=== PATIENT | female | born 1970 | race Caucasian/White ===

== ENCOUNTER 2017-12-26 11:41 | Emergency (ER) | payer MEDICARE, OTHER ==
[~2017-12-26] VITALS: Ht 167.6 cm; Wt 63.0 kg
[2017-12-26 11:44] VITALS: BP 158/88
[2017-12-26] MEDS ORDERED: LIDOcaine 1.5% w/epinephrine 1:200,000 5ml ampul IJ ONE (12:35)
[2017-12-26] MEDS ORDERED: SULF1TAB49 PO (13:24)
== END 2017-12-26 13:38 | disposition home or self-care (01) ==
LOC: ER 11:42
DX: L03.112 Cellulitis of left axilla (principal); F17.200 Nicotine dependence, unspecified, uncomplicated; Z79.899 Other long term (current) drug therapy
CPT/HCPCS: 10160; 87070; 87077; 87186; 99284; J3490

== ENCOUNTER 2020-06-22 16:14 | Emergency (ER) | payer MEDICARE ==
[~2020-06-22] VITALS: Ht 167.6 cm; Wt 62.9 kg
[2020-06-22] MEDS ORDERED: ketorolac trometh. 30mg/ml inj. IV ONE (16:55)
[2020-06-22] MEDS ORDERED: SUMAtriptan succ. 6 MG/0.5ml vial SQ ONE (16:55)
[2020-06-22] MEDS ORDERED: acetaminophen 325mg tablet PO ONE (16:55)
[2020-06-22] MEDS ORDERED: proCHLORperazine 10 MG/2 ml inj IV ONE (16:55)
[2020-06-22] MEDS ORDERED: normal saline 1000ml 1,000 ML IV ONE (16:55)
[2020-06-22] MEDS ORDERED: ONDA4TAB6 PO (17:40)
[2020-06-22 18:32] VITALS: BP 115/77
== END 2020-06-22 18:24 | disposition home or self-care (01) ==
LOC: ER 16:15
DX: S06.0X0A Concussion without loss of consciousness, initial encounter (principal); W18.39XA Other fall on same level, initial encounter; Y93.89 Activity, other specified; Y92.89 Other specified places as the place of occurrence of the external cause; Y99.8 Other external cause status; F32.9 Major depressive disorder, single episode, unspecified; Z79.899 Other long term (current) drug therapy
CPT/HCPCS: 70450; 72125; 96361; 96372; 96374; 96375; 99285; J0780; J1885; J7030; J3030

== ENCOUNTER 2023-07-14 11:01 | Emergency (ER) | payer MEDICARE ==
[~2023-07-14] VITALS: Ht 165.1 cm; Wt 90.9 kg
[~2023-07-14 11:01] MED LIST: ONDA4TAB6 PO
[2023-07-14 11:21] LABS: BASOPHILS # (AUTO) 0.1 X10'3 (0-0.2); BASOPHILS % (AUTO) 1.3 % (0-1); EOSINOPHILS # (AUTO) 0.1 X10'3 (0-0.9); EOSINOPHILS % (AUTO) 1.8 % (0-6); HEMATOCRIT 40.4 % (35.0-45.0); HEMOGLOBIN 13.4 g/dl (12.0-16.0); LYMPHOCYTES # (AUTO) 1.9 X10'3 (1.1-4.8); LYMPHOCYTES % (AUTO) 32.3 % (21-51); MEAN CORPUSCULAR HEMOGLOBIN 28.1 PG (27.0-31.0); MEAN CORPUSCULAR HGB CONC 33.2 g/dL (33.0-36.5); MEAN CORPUSCULAR VOLUME 84.6 FL (78-98); MEAN PLATELET VOLUME 9.1 FL (7.4-10.4); MONOCYTES # (AUTO) 0.5 X10'3 (0-0.9); MONOCYTES % (AUTO) 7.8 % (2-12); NEUTROPHILS # (AUTO) 3.4 X10'3 (1.8-7.7); NEUTROPHILS % (AUTO) 56.8 % (42-75); PLATELET COUNT 233 X10'3 (140-440); RED BLOOD COUNT 4.78 X10'6 (4.20-5.60); RED CELL DISTRIBUTION WIDTH 13.8 % (11.5-14.5)
[2023-07-14 11:26] VITALS: BP 172/66; PULSE 63; RESP 18; TEMP 98; O2SAT 98
[2023-07-14 11:48] LABS: ALANINE AMINOTRANSFERASE 16 U/L (12-78); ALBUMIN 3.8 G/DL (3.4-5.0); ALKALINE PHOSPHATASE 124 IU/L (46-116); ANION GAP 10 (8-16); ASPARTATE AMINO TRANSFERASE 21 U/L (10-37); BILIRUBIN,TOTAL 0.5 MG/DL (0.1-1.0); BLOOD UREA NITROGEN 15 MG/DL (7-18); BUN/CREATININE RATIO 17.2 (10.0-20.0); CALCIUM 8.8 MG/DL (8.5-10.1); CHLORIDE 105 MMOL/L (99-107); CREATININE 0.87 MG/DL (0.40-0.90); GLUCOSE 84 MG/DL (70-104); POTASSIUM 4.2 MMOL/L (3.5-5.1); SODIUM 139 MMOL/L (135-145); TOTAL CARBON DIOXIDE 24.5 MMOL/L (24-32); TOTAL PROTEIN 7.7 G/DL (6.4-8.2); eCRCL 67 ML/MIN; eGFR 68 ML/MIN
[2023-07-14 11:55] LABS: PRO BRAIN NATRIURETIC PEPTIDE 105 PG/ML (0-125)
[2023-07-14] MEDS: meclizine 12.5mg tablet PO ONE (17:41)
[2023-07-14] MEDS ORDERED: SCOP1PAT11 TOP (18:08)
[2023-07-14] MEDS ORDERED: MECL-302 PO (18:08)
== END 2023-07-14 18:23 | disposition home or self-care (01) ==
LOC: ER 11:02
DX: R42 Dizziness and giddiness (principal)
CPT/HCPCS: 36415; 70450; 71045; 80053; 83880; 84484; 85025; 93005; 99285; J8597